=== PATIENT | female | born 1940 | race Caucasian/White ===

== ENCOUNTER → 2018-05-25 | Outpatient (CLI) | payer MEDICARE ==
[~2018-05-25] MED LIST: REGADENOSON 0.4 MG/5 ML SYR IV ONE
--- NOTE | 2018-05-26 13:11 | Cardiology Report ---
DATE OF STUDY: May 25, 2018 NUCLEAR GATED MYOCARDIAL PERFUSION SCAN I did only the nuclear interpretation. The stress test was supervised by Dr. Shay Sánchez. This was a Lexiscan stress test. Lexiscan was injected 0.4 mg intravenously as a stress agent. Myoview was injected 10 mCi for resting protocol and 30 mCi for the stress protocol. Normal gated myocardial perfusion scan. No ischemia or scar noted. No wall-motion abnormality noted. Left ventricular ejection fraction is 65%. IMPRESSION: Normal stress test. Thank you, Dr. Shay Sánchez, for this nuclear stress test interpretation consultation. The stress test was supervised by Dr. Shay Sánchez. Job#: [id number]
== END ==
LOC: NM 10:20
PROVIDERS: ATTEND Internal Medicine Cardiovascular Disease
DX: I20.8 Other forms of angina pectoris (principal); R94.31 Abnormal electrocardiogram [ECG] [EKG]
CPT/HCPCS: 78452; 93017; A9502

== ENCOUNTER → 2018-06-29 | Day surgery (SDC) | payer MEDICARE ==
[2018-06-26 14:15] LABS: BASOPHILS % 0.5 % (0.0-1.0); EOSINOPHILS % 0.5 % (0.0-6.0); HEMATOCRIT 43.3 % (34.2-44.1); HEMOGLOBIN 14.7 g/dL (12.0-16.0); LYMPHOCYTES # (AUTO) 1.5 (1.0-3.2); LYMPHOCYTES % 27.5 % (18.0-39.1); MEAN CORPUSCULAR HEMOGLOBIN 32.2 pg (28-32); MEAN CORPUSCULAR HGB CONC 33.9 g/dL (31-35); MEAN CORPUSCULAR VOLUME 94.7 fL (81-99); MONOCYTES # (AUTO) 0.5 (0.2-0.8); MONOCYTES % 8.2 % (4.4-11.3); NEUTROPHILS # (AUTO) 3.5 (2.1-6.9); NEUTROPHILS % 62.9 % (38.7-80.0); PLATELET COUNT 310 x10e3/uL (140-360); RED BLOOD COUNT 4.57 x10e6/uL (3.6-5.1); RED CELL DISTRIBUTION WIDTH 12.6 % (11.7-14.4)
[~2018-06-29] MED LIST changes: +ATIVAN1 MG PO; +BIOTIN5 MG PO; +CAL-MAG TABLET1 EACH PO; +CARDIZEM CD180 MG PO; +COENZYME Q1050 MG PO; +FENTANYL CITRATE/PF 100MCG/2 ML INJ ONE; +MIDAZOLAM HCL 2 MG/2 ML VIAL ONE; +MONTELUKAST SOD10 MG PO; +MULTI-VITAMIN1 EACH PO; +OMEGA 3 1,0001 EACH PO; +PANTOPRAZOLE SO40 MG PO; +PROPOFOL IV EMULSION 10 MG/ML 50 ML VIAL ONE; +RECLAST 55 MG/100 M IV; -REGADENOSON 0.4 MG/5 ML SYR IV ONE; +RYTHMOL SR225 MG PO; +TUMERIC PO; +VERAPAMIL ER120 MG PO; +XARELTO20 MG PO; +ZYRTEC10 M3 PO
--- OUTSIDE RECORDS SUMMARY | 2018-06-29 13:35 | XMS REPORT ---
[facility] Address Unknown Phone Unavailable Care Team Providers Care Ward Clerk Name Role Phone ELIA WHEELER Unavailable Unavailable Problems This patient has no known problems. Allergies, Adverse Reactions, Alerts This patient has no known allergies or adverse reactions. Medications This patient has no known medications. Results Test Description Test Time Test Comments Text Results Atomic Results Result Comments Stress Test - Treadmill ONLY 2018-05-26 12:37:00 [place] [address] Patient Name : VIKI STEVENSON MR #: [id number] : 1940 Age/Sex: 78/F Adm Physician : ELIA WHEELER MD Admit Date : Location : [place] Room/Bed : REPORT: Cardiology Report DATE OF STUDY: May 25, 2018 NUCLEAR GATED MYOCARDIAL PERFUSION SCAN I did only the nuclear interpretation. The stress test was supervised by Dr. Elia Wheeler. This was a Lexiscan stress test. Lexiscan was injected 0.4 m g intravenously as a stress agent. Myoview was injected 10 mCi for resting protocol and 30 mCi for the stress protocol. Normal gated myocardial perfusion scan. No ischemia or scar noted. No wall-motion abnormality noted. Left ventricular ejection fraction is 65%. IMPRESSION: Normal stress test. Thank you, Dr. Elia Wheeler, for this nuclear stress test interpretation consultation. The stress test was supervised by Dr. Elia Wheeler. Job#: [id number] Signature Date Dictated By: KIMBERLY AMIN MD Transcribed By: YINKA on 05/26/18 <Electronically signed by KIMBERLY AMIN MD><<Signature on File>>06/12/18 [id number] COPY TO:
[2018-06-29 18:40] VITALS: BP 129/61
--- NOTE | 2018-06-29 18:47 | Operative Report ---
DATE OF PROCEDURE: June 29, 2018 PROCEDURE PERFORMED: Esophagogastroduodenoscopy with biopsies. REFERRING PHYSICIANS 1. Dr. Keith Meraz 2. Dr. Elia Sánchez. INDICATIONS FOR EGD: History of melena. MEDICATION: Patient was done under MAC. Please see anesthesiologist's note. PROCEDURE: With patient in left lateral decubitus position, flexible fiberoptic Olympus gastroscope was introduced into the esophagus under direct visualization without any difficulty. The esophagus appeared to be within normal limits. The scope was then advanced with ease into the stomach traversing a small sliding hiatal hernia. Mucosa overlying the antrum and the body revealed some patchy erythema and moderate edema and biopsies were obtained sent to stain for H. pylori. An approximately 1.5-cm submucosal lesion was noted in the mid body lesser curvature. The pylorus appeared to be of normal contour and shape. It was intubated with ease and the scope was advanced all the way to the 2nd portion of the duodenum. The scope was then withdrawn slowly. Mucosa overlying the proximal 2nd portion appeared to be within normal limits. There was some focal nodularity noted in the distal bulb that was biopsied. The scope was then withdrawn back into the stomach and retroflexion. The mucosa overlying the fundus and the cardia appeared to be within normal limits. The scope was then straightened out, was subsequently withdrawn. Patient tolerated the procedure well. IMPRESSIONS 1. Normal esophagus. 2. Small sliding hiatal hernia. 3. Gastritis biopsied. Biopsies sent to stain for Helicobacter pylori. 4. Approximately 1.5-cm submucosal lesion mid body lesser curvature. 5. Focal nodularity duodenal bulb biopsied. PLAN: Follow up histology. Initiate Protonix 40 mg 1 p.o. q.a.m. a.c. The patient might benefit from an endoscopic ultrasound to evaluate the submucosal lesion in the mid body. Job#: [id number] CQ cc:DO ELIA PEREZ MD
== END | disposition home or self-care (01) ==
LOC: ENDO 13:30
PROVIDERS: ATTEND Internal Medicine Gastroenterology
DX: K29.70 Gastritis, unspecified, without bleeding (principal); K29.80 Duodenitis without bleeding; Q40.8 Other specified congenital malformations of upper alimentary tract; K44.9 Diaphragmatic hernia without obstruction or gangrene; K31.89 Other diseases of stomach and duodenum; J30.2 Other seasonal allergic rhinitis; M81.0 Age-related osteoporosis without current pathological fracture; R03.0 Elevated blood-pressure reading, without diagnosis of hypertension; Z88.1 Allergy status to other antibiotic agents; Z01.812 Encounter for preprocedural laboratory examination; Z90.49 Acquired absence of other specified parts of digestive tract
CPT/HCPCS: 36415; 43239; 85025; 88305; 88312; J2250

== ENCOUNTER → 2018-07-12 | Outpatient (CLI) | payer MEDICARE ==
[~2018-07-12] MED LIST changes: -FENTANYL CITRATE/PF 100MCG/2 ML INJ ONE; +IOPAMIDOL 370 MG/ML 200 ML INFUS..BTL INJ ONE; -MIDAZOLAM HCL 2 MG/2 ML VIAL ONE; -PROPOFOL IV EMULSION 10 MG/ML 50 ML VIAL ONE; +SODIUM CHLORIDE 0.9% 50ML 50 ML ONE
[2018-07-12 14:56] LABS: BLOOD UREA NITROGEN 12 mg/dL (7-26); BUN/CREATININE RATIO 15 (6-25); CREATININE, SERUM 0.82 mg/dL (0.57-1.11); EST GLOMERULAR FILTRATION RATE > 60 ML/MIN (60-)
--- NOTE | 2018-07-12 16:54 | Diagnostic Imaging Report ---
CT chest, abdomen and pelvis with intravenous contrast Indication: Shortness of breath, left clavicular pain, stomach bulge at endoscopy Technique: Thin collimation axial images obtained from the thoracic inlet to the level of the pubic symphysis following the uneventful administration of 100 cc of low osmolar, nonionic intravenous contrast. Dose reduction techniques used: Automated exposure control, adjustment of the mAs and/or kVp according to patient size, standardized low-dose protocol, and/or iterative reconstruction technique. RADIATION DOSE: Total DLP: 626.06 mGy*cm Estimated effective dose: (DLP x 0.015 x size factor) mSv CTDIvol has been reviewed. It is below the limits set by the Radiation Protocol Committee (RPC). Comparison: CT abdomen/pelvis 09/19/2009. CHEST FINDINGS: Lymph nodes: No enlarged axillary, supraclavicular, mediastinal, or hilar lymph nodes.. Thyroid: Visualized portions are normal. Mediastinum: The heart is normal in size. No pericardial effusion. No filling defects in the great vessels. The esophagus is collapsed.. Lungs: Right Lung: Diffusely hyperinflated with mild apical pleural-parenchymal thickening. Groundglass nodule in the lateral upper lobe measures 3 mm. Subpleural nodule in the anterior middle lobe measures 5 mm. Small focus of chronic atelectasis/scar secondary to an exophytic thoracic osteophyte. Left Lung: Diffusely hyperinflated with mild apical pleural-parenchymal thickening. No evidence of mass. Pleura:No pleural effusion or pleural based mass ABDOMEN FINDINGS: Liver: Low attenuating lesion in segment 4A measures 5 mm and is too small to characterize. There is a wedge-shaped area of hypoattenuation along the falciform ligament suggestive of fat deposition. Gallbladder: Absent. Common bile duct is mildly distended to 6 mm with tapering as it approaches the ampulla. Pancreas: Normal enhancement of the parenchyma. The pancreas duct in the head, neck, proximal body measures 5 mm in diameter, stable. The ampulla is visible without evidence of obstructing mass. Low attenuating lesion in the uncinate measures 5 mm (coronal image 47) may represent a cyst or fat invagination. Spleen: Normal in size without mass. Adrenal Glands: No evidence for mass. Kidneys: Right: Normal enhancement. No cortical mass. No hydronephrosis. Left: Normal enhancement. No cortical mass. No hydronephrosis. Lymph Nodes: No enlarged abdominal or periaortic lymph nodes. Aorta: Normal in diameter with scattered calcifications. PELVIS FINDINGS: Bowel: Stomach: Uniformly enhancing, well-defined, isoattenuating mass in the wall along the lesser curvature protrudes into the gastrohepatic ligament and measures 1.3 x 1.4 x 1.2 cm. It touches the hepatic capsule. This appears to have been present in 2010, where it measured 1.0 x 1.4 cm in the axial plane. Small Bowel: There is a diverticulum of the third/fourth portion of the duodenum. Remainder of the small bowel is normal in diameter with normal wall thickness. Large Bowel: Diverticulosis coli with mural thickening of the sigmoid colon suggestive of previous bouts of diverticulitis. There is fluid distention of the cecum. No focal mural thickening Appendix: Normal appendix. Bladder: Under distended. No ureteral dilatation. Lymph Nodes: No enlarged mesenteric, pelvic, or inguinal lymph nodes. The uterus is absent. There are no adnexal masses. No free fluid or fluid collection. Bones: Kyphosis of the midthoracic spine with wedging of the T7 and T8 vertebral bodies with superimposed degenerative changes. There is mild scoliosis of the thoracolumbar spine. No compression deformities of the lumbar spine. Fusion hardware in the proximal right humerus transfixing a healed fracture of the neck is incompletely imaged. Visualized portions are intact without evidence of loosening. No active bowel disease of the clavicles. No lytic or blastic lesions. Soft tissues: No evidence of hernia or abdominal wall mass. IMPRESSION: 1. Exophytic mass arising from the stomach extending to the gastrohepatic ligament has not changed in size or appearance since 2009. This makes a benign entity such as leiomyoma more likely. Please correlate with biopsy findings from endoscopy. No evidence of regional metastasis. 2. Subcentimeter hepatic cyst. 3. Stable prominence of the pancreas duct without evidence of obstructing mass. Potential cyst or fat invasion in the uncinate process. 4. Diverticulosis coli. 5. Pulmonary hyperinflation consistent with COPD. Right pulmonary nodules bear watching to confirm stability and exclude small metastases. No evidence of metastatic lymphadenopathy in the chest. 6. Cholecystectomy and hysterectomy. 7. ORIF of right humeral neck fracture. No abnormalities of the left clavicle to explain pain. Signed by: Dr. Wendy Stafford MD on 07/12/2018 4:51 PM
== END ==
LOC: CT 13:57
PROVIDERS: ATTEND Internal Medicine Gastroenterology
DX: R10.9 Unspecified abdominal pain (principal); R19.00 Intra-abdominal and pelvic swelling, mass and lump, unspecified site; K76.9 Liver disease, unspecified; K57.30 Diverticulosis of large intestine without perforation or abscess without bleeding; R91.8 Other nonspecific abnormal finding of lung field
CPT/HCPCS: 36415; 71260; 74177; 82565; 84520; Q9967

== ENCOUNTER 2018-07-28 13:46 | Observation (INO) | payer MEDICARE, OTHER ==
[~2018-07-28] VITALS: Ht 162.6 cm; Wt 64.4 kg
[~2018-07-28 13:46] MED LIST changes: -ATIVAN1 MG PO; -CARDIZEM CD180 MG PO; -IOPAMIDOL 370 MG/ML 200 ML INFUS..BTL INJ ONE; -PANTOPRAZOLE SO40 MG PO; -RYTHMOL SR225 MG PO; -SODIUM CHLORIDE 0.9% 50ML 50 ML ONE; -XARELTO20 MG PO
[2018-07-28] MEDS ORDERED: SODIUM CHLORIDE 0.9% 1000ML 1,000 ML IV STA (14:01)
[2018-07-28] MEDS ORDERED: DILTIAZEM HCL 5 MG/ML 5 ML VIAL IV ONE (14:15)
[2018-07-28] MEDS ORDERED: ASPIRIN 81 MG CHEW TAB PO ONE (14:15)
[2018-07-28 14:19] LABS: BASOPHILS # (AUTO) 0.1 (0.0-0.1); BASOPHILS % 0.6 % (0.0-1.0); EOSINOPHILS % 0.2 % (0.0-6.0); HEMATOCRIT 40.6 % (34.2-44.1); LYMPHOCYTES # (AUTO) 2.4 (1.0-3.2); MEAN CORPUSCULAR HGB CONC 34.5 g/dL (31-35); MEAN CORPUSCULAR VOLUME 92.7 fL (81-99); MONOCYTES # (AUTO) 0.7 (0.2-0.8); NEUTROPHILS # (AUTO) 5.1 (2.1-6.9); PLATELET COUNT 311 x10e3/uL (140-360); RED BLOOD COUNT 4.38 x10e6/uL (3.6-5.1); RED CELL DISTRIBUTION WIDTH 12.9 % (11.7-14.4)
[2018-07-28 14:28] LABS: INR 0.85; PROTHROMBIN TIME 12.4 seconds (11.9-14.5)
[2018-07-28 14:29] LABS: PARTIAL THROMBOPLASTIN TIME 26.8 seconds (23.8-35.5)
[2018-07-28] MEDS ORDERED: DILTIAZEM HCL 125 ML IV SCH (14:30)
[2018-07-28] MEDS ORDERED: DILTIAZEM HCL LA 120MG 120 MG CAP PO SCH (14:30)
[2018-07-28 14:37] LABS: ALANINE AMINOTRANSFERASE 20 IU/L (0-55); ALBUMIN 3.9 g/dL (3.5-5.0); ALBUMIN/GLOBULIN RATIO 1.4 (0.8-2.0); ALKALINE PHOSPHATASE 59 IU/L (40-150); ANION GAP 14.3 mmol/L (8-16); BLOOD UREA NITROGEN 11 mg/dL (7-26); BUN/CREATININE RATIO 13 (6-25); CALCIUM 9.3 mg/dL (8.4-10.2); CARBON DIOXIDE 25 mmol/L (22-29); CHLORIDE 104 mmol/L (98-107); CREATINE KINASE 91 IU/L (29-168); CREATININE, SERUM 0.88 mg/dL (0.57-1.11); EST GLOMERULAR FILTRATION RATE > 60 ML/MIN (60-); GLUCOSE 101 mg/dL (74-118); POTASSIUM 3.3 mmol/L (3.5-5.1); SODIUM 140 mmol/L (136-145)
--- NOTE | 2018-07-28 14:39 | Diagnostic Imaging Report ---
EXAMINATION: CHEST SINGLE (PORTABLE) INDICATION: Abnormal EKG. Shortness of breath COMPARISON: None FINDINGS: The patient is rotated to the right. TUBES and LINES: None. LUNGS: Lungs are well inflated. Mild chronic appearing changes in the lungs. There is no evidence of pneumonia or pulmonary edema. PLEURA: No pleural effusion or pneumothorax. HEART AND MEDIASTINUM: The cardiomediastinal silhouette is unremarkable. BONES AND SOFT TISSUES: No acute osseous lesion. Soft tissues are unremarkable. UPPER ABDOMEN: No free air under the diaphragm. IMPRESSION: No acute thoracic abnormality. Signed by: Dr. Blade Landis M.D. on 07/28/2018 2:36 PM
[2018-07-28] MEDS: DILTIAZEM HCL ER 120 MG CAPCR PO SCH (14:41)
[2018-07-28 14:56] LABS: THYROID STIMULATING HORMONE 1.285 uIU/mL (0.350-4.940)
[2018-07-28] MEDS ORDERED: PANTOPRAZOLE SO40 MG PO (15:58)
[2018-07-28] MEDS ORDERED: FAMOTIDINE 20 MG TAB PO SCH (16:00)
[2018-07-28] MEDS ORDERED: SODIUM CHLORIDE FLUSH 10 ML SYR INJ PRN (16:00)
[2018-07-28] MEDS ORDERED: ONDANSETRON HCL INJ 2 MG/ML VIAL IV PRN (16:00)
[2018-07-28] MEDS ORDERED: METOPROLOL TARTRATE INJ 1 MG/ML VIAL IV PRN (16:00)
[2018-07-28] MEDS: WARFARIN SOD 5 MG TAB PO SCH (16:20)
[2018-07-28] MEDS: ENOXAPARIN SOD INJ 40 MG/0.4 ML SYR SC SCH (16:41)
[2018-07-28] MEDS ORDERED: LORAZEPAM 1 MG TAB PO PRN (17:30)
[2018-07-28] MEDS ORDERED: DIGOXIN INJ 0.25 MG/ML 2 ML AMP IV NR (17:30)
[2018-07-28 22:53] LABS: CREATINE KINASE 64 IU/L (29-168)
[2018-07-29] MEDS: ENOXAPARIN SOD INJ 40 MG/0.4 ML SYR SC SCH ×2 (05:20→16:58)
[2018-07-29] MEDS: PROPAFENONE HCL 150 MG TAB PO SCH ×2 (05:20→05:45)
[2018-07-29 05:23] LABS: BASOPHILS # (AUTO) 0.1 (0.0-0.1); BASOPHILS % 0.9 % (0.0-1.0); EOSINOPHILS # (AUTO) 0.1 (0.0-0.4); EOSINOPHILS % 1.3 % (0.0-6.0); HEMATOCRIT 36.9 % (34.2-44.1); HEMOGLOBIN 12.7 g/dL (12.0-16.0); LYMPHOCYTES # (AUTO) 2.4 (1.0-3.2); MEAN CORPUSCULAR HGB CONC 34.4 g/dL (31-35); MEAN CORPUSCULAR VOLUME 92.9 fL (81-99); MONOCYTES # (AUTO) 0.5 (0.2-0.8); MONOCYTES % 8.8 % (4.4-11.3); NEUTROPHILS # (AUTO) 2.5 (2.1-6.9); NEUTROPHILS % 44.8 % (38.7-80.0); PLATELET COUNT 275 x10e3/uL (140-360); RED BLOOD COUNT 3.97 x10e6/uL (3.6-5.1); RED CELL DISTRIBUTION WIDTH 13.1 % (11.7-14.4)
[2018-07-29 05:40] LABS: INR 0.94; PROTHROMBIN TIME 13.4 seconds (11.9-14.5)
[2018-07-29 05:41] LABS: PARTIAL THROMBOPLASTIN TIME 28.4 seconds (23.8-35.5)
[2018-07-29 05:46] LABS: ANION GAP 12.4 mmol/L (8-16); BLOOD UREA NITROGEN 11 mg/dL (7-26); BUN/CREATININE RATIO 15 (6-25); CALCIUM 8.1 mg/dL (8.4-10.2); CARBON DIOXIDE 25 mmol/L (22-29); CHLORIDE 111 mmol/L (98-107); CREATININE, SERUM 0.73 mg/dL (0.57-1.11); EST GLOMERULAR FILTRATION RATE > 60 ML/MIN (60-); GLUCOSE 86 mg/dL (74-118); POTASSIUM 3.4 mmol/L (3.5-5.1); SODIUM 145 mmol/L (136-145)
[2018-07-29 07:09] LABS: CHOL/HDL RATIO 3.2 (3.0-3.6); CHOLESTEROL 150 MD/DL (0-199); CREATINE KINASE 59 IU/L (29-168); HDL CHOLESTEROL 47 MG/DL (40-60); LDL CHOLESTEROL 77 MG/DL (60-130); TRIGLYCERIDES 128 MG/DL (0-149)
[2018-07-29] MEDS ORDERED: DILTIAZEM HCL LA 120MG 120 MG CAP PO SCH ×2 (09:00)
[2018-07-29] MEDS: DILTIAZEM HCL ER 120 MG CAPCR PO SCH (09:46)
[2018-07-29] MEDS: FAMOTIDINE 20 MG TAB PO SCH ×2 (09:46→21:00)
[2018-07-29] MEDS ORDERED: POTASSIUM CHLORIDE 20 MEQ TAB CR PO NR (12:15)
[2018-07-29 12:39] VITALS: BP 95/81
[2018-07-29 13:05] VITALS: BP 95/81
[2018-07-29 13:11] VITALS: BP 95/81
[2018-07-29 16:30] VITALS: BP 110/60
[2018-07-29] MEDS: WARFARIN SOD 5 MG TAB PO SCH (16:58)
[2018-07-29 20:53] VITALS: BP 120/68
[2018-07-30] VITALS: BP 138/78
[2018-07-30] MEDS: PROPAFENONE HCL 150 MG TAB PO SCH ×2 (01:00→08:31)
[2018-07-30 04:59] VITALS: BP 116/70
[2018-07-30 07:39] VITALS: BP 109/67
[2018-07-30] MEDS: ENOXAPARIN SOD INJ 40 MG/0.4 ML SYR SC SCH (07:43)
[2018-07-30 08:01] VITALS: BP 109/67
[2018-07-30] MEDS: FAMOTIDINE 20 MG TAB PO SCH (08:31)
[2018-07-30] MEDS: DILTIAZEM HCL ER 120 MG CAPCR PO SCH (08:32)
[2018-07-30 11:22] VITALS: BP 108/62
[2018-07-30] MEDS ORDERED: XARELTO20 MG PO (12:37)
[2018-07-30] MEDS ORDERED: RYTHMOL SR225 MG PO (12:38)
[2018-07-30] MEDS ORDERED: CARDIZEM CD180 MG PO (12:38)
[2018-07-30] MEDS ORDERED: ATIVAN1 MG PO (12:39)
--- NOTE | 2018-07-31 01:45 | Consultation ---
DATE OF CONSULTATION: July 29, 2018 The patient was seen on July 29 in the emergency room. Patient was recently evaluated by myself because of palpitations and diplopia. She was found to have paroxysmal atrial fibrillation on Holter monitor and was given Xarelto 15 mg. After about 2 or 3 days on Xarelto, she developed black stool and anticoagulation was then discontinued. The patient also had intolerance to metoprolol and she was given prescription for verapamil. However, she stated since she has some mild abdominal discomfort and this medication was also discontinued. She had recent evaluation by Dr. Justin Arevalo with an EGD and the CT scan of the abdomen and pelvis, which showed some gastritis and apparently also diverticulosis according to the patient. She also had a CT of the chest, there were some pulmonary nodules. The patient was very anxious and she immediately went to [facility] to rule out any possible malignancy since there was some tumorous growth in the stomach area, which has been also noted in 2010 and had not changed in size. The patient was told that the finding is probably benign. However, while she was at [facility], she developed atrial fibrillation with a rate of 140 to 160 per minute and was then advised to go to the emergency room at [facility]. She received diltiazem intravenously, which lowered her ventricular rate in the range of 100 to 120. However, the patient still has atrial fibrillation. ALLERGIES: ERYTHROMYCIN. SOCIAL HISTORY: Negative. PAST HISTORY: She had a history of pancreatitis, head injury, previous cholecystectomy, craniotomy, hysterectomy. She had allergic bronchitis, GERD, and a history of angina. 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 SOCIAL: Negative. The remainder of systems reviewed. Patient denies any chest pain or shortness of breath since her heart rate has been reduced. She denies any abdominal pain. She denies any leg edema, leg pain. EXAMINATION VITALS: Blood pressure 100/50. Her pulses are present. CHEST: Clear to auscultation. CARDIOVASCULAR SYSTEM: Normal apical impulse. The rhythm is irregularly irregular with a rate of 110 per minute. ABDOMEN: Soft. There is no tenderness, visceromegaly. EXTREMITIES: Pulses are present and the patient has no peripheral edema. NEUROLOGIC: Intact. IMPRESSIONS 1. Atrial fibrillation with rapid ventricular response. 2. Gastroesophageal reflux disease and gastritis. 3. History of osteoporosis. 4. Allergic sinobronchitis. 5. Nervousness and anxiety reaction. Since the patient apparently has some intolerance to metoprolol and verapamil, I will recommend to start the patient on Rythmol 150 mg every 8 hours. The patient was started on warfarin and while building up the level of her prothrombin time in a therapeutic the range. I have also recommended to add Lovenox. The patient also may benefit from some anxiolytic medication and will need to continue close observation. Thank you very much for letting me to see this very nice patient. Job#: [id number] CQ
== END 2018-07-30 13:01 | disposition home or self-care (01) ==
LOC: ER 13:46 → ERHOLD 16:04 → IMCU 07-29 12:50
DX: I48.0 Paroxysmal atrial fibrillation (principal); K21.9 Gastro-esophageal reflux disease without esophagitis; K29.70 Gastritis, unspecified, without bleeding; K57.90 Diverticulosis of intestine, part unspecified, without perforation or abscess without bleeding; M81.0 Age-related osteoporosis without current pathological fracture; J30.89 Other allergic rhinitis; F41.1 Generalized anxiety disorder; R91.8 Other nonspecific abnormal finding of lung field; Z87.891 Personal history of nicotine dependence
CPT/HCPCS: 36415 ×2; 71045; 71260; 80048; 80053; 80061; 82550 ×2; 82553 ×2; 83880; 84443; 84484 ×2; 85025 ×2; 85379; 85610 ×2; 85730 ×2; 93005 ×2; 99284; G0378 ×3; J1650 ×3; J7030

== ENCOUNTER → 2020-06-30 | Day surgery (SDC) | payer MEDICARE, OTHER ==
[2020-06-26 10:48] LABS: BASOPHILS # (AUTO) 0.1 (0.0-0.1); BASOPHILS % 0.7 % (0.0-1.0); EOSINOPHILS # (AUTO) 0.1 (0.0-0.4); EOSINOPHILS % 1.2 % (0.0-6.0); HEMATOCRIT 39.8 % (34.2-44.1); HEMOGLOBIN 13.3 g/dL (12.0-16.0); LYMPHOCYTES # (AUTO) 1.4 (1.0-3.2); LYMPHOCYTES % 20.8 % (18.0-39.1); MEAN CORPUSCULAR HGB CONC 33.4 g/dL (31-35); MEAN CORPUSCULAR VOLUME 95.7 fL (81-99); MONOCYTES # (AUTO) 0.6 (0.2-0.8); MONOCYTES % 8.8 % (4.4-11.3); NEUTROPHILS # (AUTO) 4.6 (2.1-6.9); NEUTROPHILS % 68.2 % (38.7-80.0); PLATELET COUNT 314 x10e3/uL (140-360); RED BLOOD COUNT 4.16 x10e6/uL (3.6-5.1); RED CELL DISTRIBUTION WIDTH 12.7 % (11.7-14.4)
[~2020-06-30] MED LIST changes: +ATIVAN1 MG PO; +CALCIUM CARBON500 MG PO; +CARDIZEM CD180 MG PO; +HYOSCYAMINE 0.125 MG TAB ONE; +MAGNESIUM OXID400 MG PO; +OMEGA-31000 MG PO; +PANTOPRAZOLE SO40 MG PO; +PROPAFENONE HC325 MG PO; +RYTHMOL SR225 MG PO; +VITAMIN D250 MCG PO; +XARELTO10 MG PO; +XARELTO20 MG PO
[2020-06-30 11:30] VITALS: BP 135/79
--- NOTE | 2020-06-30 11:57 | Operative Report ---
DATE OF PROCEDURE: 06/30/2020 SURGEON: Justin Arevalo MD PROCEDURE: Colonoscopy with polypectomy. INDICATIONS FOR COLONOSCOPY: Colorectal cancer screening. MEDICATIONS: The patient was done under MAC, please see anesthesiologist's note. PROCEDURE IN DETAIL: With the patient in the left lateral decubitus position, a flexible fiberoptic Olympus colonoscope was inserted into the rectum with ease and advanced all the way to the cecum. Mucosa overlying the cecum appeared to be within normal limits. One polyp was cold snared from the ascending colon. Transverse grossly appeared to be within normal limits. One polyp was hot snared and one polyp was hot biopsied from the descending colon. Diverticular disease was noted to involve the descending and the sigmoid. The rectum appeared to be within normal limits. The scope was then retroflexed into the distal rectum and the area around the dentate line appeared to be grossly within normal limits. The scope was then straightened out, it was subsequently withdrawn, and patient tolerated the procedure well. IMPRESSION: 1. Ascending colon polyp, cold snared. 2. Descending colon polyps x2, one hot snared and one hot biopsied. 3. Diverticulosis. PLAN: Follow up histology. Initiate high-fiber, low-fat diet. Initiate high-fiber supplement. The patient might benefit from a followup colonoscopy in 3 to 5 years. Justin Arevalo MD [facility] /[id number] cc: Jose Meraz DO
== END | disposition home or self-care (01) ==
LOC: OR 06:58
PROVIDERS: ATTEND Internal Medicine Gastroenterology
DX: Z12.11 Encounter for screening for malignant neoplasm of colon (principal); D12.4 Benign neoplasm of descending colon; K57.30 Diverticulosis of large intestine without perforation or abscess without bleeding; J30.2 Other seasonal allergic rhinitis; K21.9 Gastro-esophageal reflux disease without esophagitis; I11.0 Hypertensive heart disease with heart failure; I50.9 Heart failure, unspecified; I48.91 Unspecified atrial fibrillation; M81.0 Age-related osteoporosis without current pathological fracture; Z01.810 Encounter for preprocedural cardiovascular examination; Z01.812 Encounter for preprocedural laboratory examination; Z20.828 Contact with and (suspected) exposure to other viral communicable diseases; Z88.1 Allergy status to other antibiotic agents; Z79.02 Long term (current) use of antithrombotics/antiplatelets
CPT/HCPCS: 36415; 45384; 45385; 85025; 88305; 93005; U0002; 45378

== ENCOUNTER → 2021-05-15 | Day surgery (SDC) | payer MEDICARE, OTHER ==
[2021-05-13 11:56] LABS: BASOPHILS % 0.4 % (0.0-1.0); EOSINOPHILS % 0.3 % (0.0-6.0); HEMATOCRIT 41.5 % (34.2-44.1); LYMPHOCYTES # (AUTO) 1.5 (1.0-3.2); LYMPHOCYTES % 20.5 % (18.0-39.1); MEAN CORPUSCULAR HEMOGLOBIN 32.1 pg (28-32); MEAN CORPUSCULAR HGB CONC 33.7 g/dL (31-35); MEAN CORPUSCULAR VOLUME 95.2 fL (81-99); MONOCYTES # (AUTO) 0.5 (0.2-0.8); MONOCYTES % 7.3 % (4.4-11.3); NEUTROPHILS # (AUTO) 5.3 (2.1-6.9); NEUTROPHILS % 71.4 % (38.7-80.0); PLATELET COUNT 341 x10e3/uL (140-360); RED BLOOD COUNT 4.36 x10e6/uL (3.6-5.1); RED CELL DISTRIBUTION WIDTH 12.5 % (11.7-14.4)
[~2021-05-15] MED LIST changes: +COLESTIPOL HCL1 GM PO; -HYOSCYAMINE 0.125 MG TAB ONE; +PROBIOTIC & AC1 EACH PO; +PROTONIX20 MG PO
[2021-05-15 08:35] VITALS: BP 110/69
== END | disposition home or self-care (01) ==
LOC: OR 05:57
PROVIDERS: ATTEND Internal Medicine Gastroenterology
DX: K29.60 Other gastritis without bleeding (principal); K44.9 Diaphragmatic hernia without obstruction or gangrene; Q40.8 Other specified congenital malformations of upper alimentary tract; D48.1 Neoplasm of uncertain behavior of connective and other soft tissue; K21.9 Gastro-esophageal reflux disease without esophagitis; R19.7 Diarrhea, unspecified; R06.09 Other forms of dyspnea; I10 Essential (primary) hypertension; I48.91 Unspecified atrial fibrillation; M81.0 Age-related osteoporosis without current pathological fracture; Z88.1 Allergy status to other antibiotic agents; Z01.810 Encounter for preprocedural cardiovascular examination; Z01.812 Encounter for preprocedural laboratory examination; Z20.822 Contact with and (suspected) exposure to COVID-19; Z87.19 Personal history of other diseases of the digestive system
CPT/HCPCS: 36415; 43239; 85025; 93005; U0002

== ENCOUNTER → 2021-12-16 | Outpatient (CLI) | payer MEDICARE | LOC: CARD 09:12 | PROVIDERS: ATTEND Internal Medicine Cardiovascular Disease | DX: M71.22 Synovial cyst of popliteal space [Baker], left knee (principal); I82.402 Acute embolism and thrombosis of unspecified deep veins of left lower extremity; I72.4 Aneurysm of artery of lower extremity | CPT/HCPCS: 93926; 93971 ==

== ENCOUNTER → 2021-12-18 | Outpatient (CLI) | payer MEDICARE | LOC: RAD 11:28 | PROVIDERS: ATTEND Internal Medicine Cardiovascular Disease | DX: M25.562 Pain in left knee (principal); M25.462 Effusion, left knee ==